=== PATIENT | male | born 1970 | race Caucasian/White ===

== ENCOUNTER 2016-11-19 12:53 | Inpatient (IN) | payer OTHER ==
[~2016-11-19] VITALS: Ht 170.2 cm; Wt 78.9 kg
[~2016-11-19 12:53] MED LIST: AMOXIL500 MG PO; ASPIRIN325 MG PO; CLARITHROMYCIN500 M1 PO; COLACE100 MG PO; LAC PO; METOPROLOL TART25 M1 PO; MOTRIN800 MG PO; NORCO1 TA2 PO; OMEPRAZOLE DR20 M1 PO; PRILOSEC20 MG PO; STOOL SOFTENER100 MG PO; VALIUM5 MG PO; ZES5 PO
--- NOTE | 2016-11-19 16:15 | NUR ---
DR WISE AT BEDSIDE FOR MSE
--- NOTE | 2016-11-19 16:42 | NUR ---
METER MAINTENANCE PERSON AT BEDSIDE.
[2016-11-19 17:11] LABS: BASOPHIL % 1.3 % (0-2); PLATELET COUNT 303 x10^3mcL (130-400)
[2016-11-19 17:19] LABS: CALCIUM 8.4 mg/dL (8.5-10.1); CHLORIDE SERUM 103 mmol/L (98-107); CREATININE SERUM 0.8 mg/dL (0.7-1.3); GFR1 > 60 mL/min; GLUCOSE SERUM 95 mg/dL (74-106); POTASSIUM SERUM 3.8 mmol/L (3.5-5.1); SODIUM SERUM 138 mmol/L (136-145)
--- NOTE | 2016-11-19 17:22 | NUR ---
NS INFUSING AT 100 ML/HR, PT MEDICATED WITH ZOFRAN, AND MORPHINE 1 MG SLOW IVP DILUTED. UPON GIVING MORPHINE PT REQUESTED THAT I STOP BECAUSE HE LIKED THE WAY IT WAS FEELING AND HE DOESNT WANT TO FEEL IT ANYMORE. PT REPORTS PAIN IS GONE AT THIS TIME. DR WISE INFORMED. ROCEPHIN 1 GRAM IV INFUSING PER ORDERS VIA IV PUMP AT 100 ML/HR. PT DENIES ALLERGIES TO MEDICATIONS. PT EDUCATED ON MEDICATIONS PRIOR TO ADMINISTRATION. PT RESTING WITH CALL LIGHT IN REACH.
[2016-11-19 17:23] LABS: ALBUMIN 3.4 g/dL (3.4-5.0); ALKALINE PHOSPHATASE 141 U/L (46-116); ALT/SGPT 36 U/L (16-63); AST/SGOT 25 U/L (15-37); BILIRUBIN TOTAL 0.4 mg/dL (0.20-1.00); URIC ACID 4.9 mg/dL (3.5-7.2)
--- NOTE | 2016-11-19 17:24 | NUR ---
PT UNABLE TO URINATE AT THIS TIME.
[2016-11-19 17:28] LABS: RED CELL DISTRIBUTION WIDTH 14.9 % (11.5-14.5)
--- NOTE | 2016-11-19 17:41 | NUR ---
ROCEPHIN COMPLETE WITH NO ADVERSE REACTIONS NOTED.
--- NOTE | 2016-11-19 18:37 | NUR ---
CALLED TO GIVE REPORT, JAY STATED SHE WILL CALL ME BACK.
--- NOTE | 2016-11-19 18:47 | NUR ---
CALLED ER BACK FOR REPORT , ED RN UNABLE AT THIS TIME.
--- NOTE | 2016-11-19 18:54 | NUR ---
REPORT GIVEN TO SERA ARRIAZA TO ASSUME CARE OF PT.
--- NOTE | 2016-11-19 19:22 | NUR ---
PT MEDICATED WITH TORADOL SLOW IVP PER DR WISE ORDERS, PT DENIES ALLERGIES TO MEDICATIONS, PT EDUCATED ON MEDICATION PRIOR TO ADMINISTRATION.
[2016-11-19 19:26] LABS: microscopic required? NO
[2016-11-19 19:39] LABS: UA SPECIFIC GRAVITY <=1.005 (1.005-1.035); urine erythrocyte NEGATIVE (NEGATIVE)
[2016-11-19 19:43] LABS: CHOLESTEROL/HDL RATIO 3.3; MAGNESIUM 2.1 mg/dL (1.8-2.4)
[2016-11-19 19:48] LABS: AMPHETAMINE QUAL UR NONE DETECTED (NEG <=1000)
[2016-11-19 19:48] LABS: T3 TOTAL 1.09 ng/mL
[2016-11-19 19:49] VITALS: BP 116/71
--- NOTE | 2016-11-19 19:50 | NUR ---
RECEIVED PT FROM TITI RN. PT A/OX4. DENIES CHEST PAIN/PRESSURE. DENIES SOB ON RA. IV PATENT TO LAC. C/O PAIN TO R FOOT 08/22. REDNESS AND SWELLING WITH CLOSED BLACK ABRAISION TO SOLE OF FOOT. PAIN RADIATES UP R LOWER EXTREMITY AND THROBBING. WILL MEDICATE FOR PAIN PRN PER EMAR. ORIENTED TO ROOM AND SURROUNDINGS. CALL LIGHT WITHIN REACH, BED IN LOW POSITION. WILL CONTINUE TO MONITOR.
[2016-11-19 19:52] LABS: FREE T4 0.89 ng/dL (0.76-1.46); FREE THYROXINE INDEX 2.3 ug/dL (1.4-4.5); T4(THYROXINE) 6.5 ug/dL (4.7-13.3)
--- NOTE | 2016-11-19 19:54 | NUR ---
RECEIVED PT FROM ED VIA VALENTIN. ORIENTED PT TO ROOM AND SURROUNDINGS. IV NOTED TO LAC PATENT AND INTACT .TELE 36 PLACED ON PT READING NSR. INSTRUCTED PT ON THE USE OF CALL LIGHT FOR ASSISTANCE. ENDORSED PT TO PRIMARY NURSE AMISHA
[2016-11-19 20:47] VITALS: BP 116/71
--- NOTE | 2016-11-19 23:29 | NUR ---
PT C/O 09/22 PAIN TO RLE. MORPHINE PULLED AND SCANNED, PT REFUSED DUE TO HX OF DRUG ADDICTION. REQUESTING TORADOL. WILL NOTIFY DR FOR ORDER. MORPHINE 2MG WASTED AND VERIFIED BY LEDA ARRIAZA.
--- NOTE | 2016-11-20 01:01 | NUR ---
PT RESTING AT THIS TIME IN NO ACUTED DISTRESS. RR EVEN AND UNLABORED. IV PATENT. CALL LIGHT WITHIN REACH, BED IN LOW POSITION. WILL CONTINUE TO MONITOR.
[2016-11-20 05:17] VITALS: BP 118/67
--- NOTE | 2016-11-20 07:30 | NUR ---
PATIENT IS IN BED, APPEARS TO BE RESTING WELL. AROUSED EASILY TO NAME. IVF INFUSING WELL, SITE PATENT LT A/C. RESP EVEN AND UNLABORED, LUNGS CLEAR ON ROOM AIR. DENIES ANY SOB OR COUGH. TELE 36 NSR. ABD SOFT BOWEL SOUNDS ACTIVE, VOIDING WELL. RT FOOT NOTED WITH SMALL BLACK DOT ON THE SOLE OF THE FOOT, BRETT. NO REDNESS NOTED, BUT TOP OF RT FOOT DOES APPEAR TO BE SWOLLEN. AMBULATES AD ROBERT TO THE BATHROOM. WILL CONTINUE TO MONITOR.
--- NOTE | 2016-11-20 08:30 | NUR ---
DR ALSTON AND MEDICAL TEAM INTO SEE PATIENT AND DISCUSS PLAN OF CARE.
[2016-11-20 09:18] VITALS: BP 119/76
--- NOTE | 2016-11-20 09:30 | NUR ---
PATIENT'S PLAN OF CARE WAS DISCUSSED AND REVIEWED WITH COMPRESSOR OPERATOR:JENY
--- NOTE | 2016-11-20 09:30 | NUR ---
I HAVE REVIEWED THE DATA COLLECTION BY GASTON (NAME):JENY ENTERED ON (DATE/TIME):11/20/16 5468 I CONCUR WITH THE DATA AND ANY EXCEPTIONS OR COMMENTS ARE LISTED BELOW:
[2016-11-20 12:41] VITALS: BP 135/87
[2016-11-20 14:52] LABS: BASOPHIL % 0.3 % (0-2); PLATELET COUNT 262 x10^3mcL (130-400); RED CELL DISTRIBUTION WIDTH 14.3 % (11.5-14.5)
[2016-11-20 14:58] LABS: CALCIUM 8.2 mg/dL (8.5-10.1); CARBON DIOXIDE 27.5 mmol/L (21-32); CHLORIDE SERUM 109 mmol/L (98-107); CREATININE SERUM 0.9 mg/dL (0.7-1.3); GFR1 > 60 mL/min; GLUCOSE SERUM 111 mg/dL (74-106); POTASSIUM SERUM 4.1 mmol/L (3.5-5.1); SODIUM SERUM 141 mmol/L (136-145)
[2016-11-20 16:44] VITALS: BP 125/84
--- NOTE | 2016-11-20 17:36 | NUR ---
PATIENT SITTING UP IN BED, HAS BEEN WATCHING TV AND TALKING ON PHONE. C/O RT FOOT PAIN 11/22. WILL BE MEDICATED WITH TORADOL BY ANASTASIA ARRIAZA ORDERED. NO CHANGE IN CONDITION NOTED. WILL CONTINUE TO MONITOR.
--- NOTE | 2016-11-20 20:00 | NUR ---
RECEIVED PT IN BED. ALERT AND ORIENTED. DENIES HEADACHE/DIZZINESS. RESP. EVEN AND UNLABORED. LUNGS SOUNDS CLEAR. ON ROOM AIR, NO DISTRESS NOTED. AFEBRILE AND VITAL SIGNS STABLE. SR ON THE MONITOR. DENIES CHEST PAIN OR ANY DISCOMFORT. IVF, NS AT 100ML/HR, INTACT AND INFUSING VIA LAC, SITE CLEAR. RT FOOT SWOLLEN AND SLIGHTLY RED, ELEVATED ON PILLOW. VOIDING FREELY. ASSISTED WITH HS CARE. CALL LIGHT WITHIN REACH. WILL CONTINUE TO MONITOR.
[2016-11-20 21:35] VITALS: BP 104/62
--- NOTE | 2016-11-21 00:39 | NUR ---
COMPLAINED OF RT FOOT PAIN, 5/10, MEDICATED WITH TORADOL IV ORDERED. WILL CONTINUE TO MONITOR.
--- NOTE | 2016-11-21 01:29 | NUR ---
SLEEPING AT THIS TIME, APPEARS COMFORTABLE. NO DISTRESS NOTED. WILL CONTINUE TO MONITOR.
[2016-11-21 06:32] VITALS: BP 108/62
[2016-11-21 06:36] LABS: BASOPHIL % 0.4 % (0-2); PLATELET COUNT 246 x10^3mcL (130-400)
--- NOTE | 2016-11-21 06:40 | NUR ---
AFEBRILE AND VITAL SIGNS STABLE. DENIES CHEST PAIN OR ANY DISCOMFORT AT THIS TIME. SLEPT WELL. RT FOOT ELEVATED ON PILLOW. DUE MEDS GIVEN ORDERED, MARY. WELL. IVF INTACT AND INFUSING WELL, SITE CLEAR. VOIDING FREELY. RESP. EVEN AND UNLABORED.NO DISTRESS NOTED. WILL ENDORSE TO INCOMING NURSE.
[2016-11-21 07:01] LABS: CALCIUM 7.9 mg/dL (8.5-10.1); CARBON DIOXIDE 24.5 mmol/L (21-32); CHLORIDE SERUM 108 mmol/L (98-107); CREATININE SERUM 0.9 mg/dL (0.7-1.3); GFR1 > 60 mL/min; GLUCOSE SERUM 87 mg/dL (74-106); MAGNESIUM 2.1 mg/dL (1.8-2.4); PHOSPHOROUS 3.6 mg/dL (2.5-4.9); POTASSIUM SERUM 3.9 mmol/L (3.5-5.1); SODIUM SERUM 142 mmol/L (136-145)
[2016-11-21 07:04] LABS: RED CELL DISTRIBUTION WIDTH 14.8 % (11.5-14.5)
--- NOTE | 2016-11-21 07:57 | NUR ---
AAO TIMES 4. TELE # 36 SR. LUNGS CTA. NO SOB. O2 SAT ON RA 99%. BS'S ACTIVE TIMES 4. [place] STRONG. RIGHT FOREFOOT WITH TINY DRIED, BARELY RED WOUND, NO EDEMA. PT STATES IT HURTS TO WALK ON THE WOUND. WOUND POACHER WRINGER OPERATOR WITH SOCKS ON, WILL DO MONDAY PHOTO AND APPLY DRESSING OR BANDAID TO WOUND. PERIPHERAL PULSES PALPABLE, NO EDEMA, NO REDNESS RLE. COOPERATIVE.
--- NOTE | 2016-11-21 08:38 | NUR ---
DR QUEVEDO AND THE MEDICINE TEAM DID ROUNDS WITH PT AT THIS TIME. THE PLAN FOR TODAY IS TO HAVE DEBRIDEMENT OF HIS RIGHT FOOT WITH PODIATRY AND WILL PROBABLY BE DC'D TOMORROW.
[2016-11-21 09:53] VITALS: BP 123/71
[2016-11-21 12:50] VITALS: BP 105/66
[2016-11-21 17:14] VITALS: BP 121/74
--- NOTE | 2016-11-21 18:06 | NUR ---
AAO TIMES 4. NO TELE. GAVE TORADOL 30 MG IVP SLOW OVER 1 MINUTE AT 1743 FOR C/O RIGHT FOOT PAIN 09/22. PLEASANT, COOPERATIVE. IV SITE LAC PATENT, CDI.
--- NOTE | 2016-11-21 19:10 | NUR ---
REC'D PT FROM DAY NURSE. PT AAOX4, SPEECH CLEAR, FOLLOWS COMMANDS. RESTING IN BED ON PHONE. NO SIGNS OF DISTRESS NOTED. BREATHING EVEN/UNLABORED. TELE 54 . DENIES CP, DIZZINESS, OR PALPITATIONS. NO EDEMA NOTED. DENIES ABD PAIN, TENDERNESS, OR N/V. VOIDING FREELY. AMBULATORY. PT IS S/P DEBRIDEMENT TO PLANTAR R FOOT. KERLIX WITH CASA BANDAGE CDI. REPORTS SOME PAIN. /, TOLERABLE AT THIS TIME. NOTED DRY SCALY SKIN TO DIVINA FEET, DENIES ITCHINESS. RLE ELEVATED WITH PILLOW. POST OP SHOE AT BEDSIDE. IV TO LAC PATENT AND INFUSING. CALL LIGHT WITHIN REACH, BED AT LOWEST POSITION. WILL CONTINUE TO MONITOR.
--- NOTE | 2016-11-21 19:10 | NUR ---
REC'D PT FROM DAY NURSE. PT AAOX4, SPEECH CLEAR, FOLLOWS COMMANDS. RESTING IN BED ON PHONE. NO SIGNS OF DISTRESS NOTED. BREATHING EVEN/UNLABORED. MED SURG PT, NO TELE. DENIES CP, DIZZINESS, OR PALPITATIONS. NO EDEMA NOTED. DENIES ABD PAIN, TENDERNESS, OR N/V. VOIDING FREELY. AMBULATORY. PT IS S/P DEBRIDEMENT TO PLANTAR R FOOT. KERLIX WITH CASA BANDAGE CDI. REPORTS SOME PAIN. 06/22, TOLERABLE AT THIS TIME. NOTED RASH TO DIVINA FEET, DENIES ITCHINESS. RLE ELEVATED WITH PILLOW. IV TO LAC PATENT AND INFUSING. CALL LIGHT WITHIN REACH, BED AT LOWEST POSITION. WILL CONTINUE TO MONITOR.
--- NOTE | 2016-11-21 19:10 | NUR ---
REC'D PT FROM DAY NURSE. PT AAOX4, SPEECH CLEAR, FOLLOWS COMMANDS. RESTING IN BED ON PHONE. NO SIGNS OF DISTRESS NOTED. BREATHING EVEN/UNLABORED. MED SURG PT, NO TELE. DENIES CP, DIZZINESS, OR PALPITATIONS. NO EDEMA NOTED. DENIES ABD PAIN, TENDERNESS, OR N/V. VOIDING FREELY. AMBULATORY. PT IS S/P DEBRIDEMENT TO PLANTAR R FOOT. KERLIX WITH CASA BANDAGE CDI. REPORTS SOME PAIN. 06/22, TOLERABLE AT THIS TIME. NOTED DRY SCALY SKIN TO DIVINA FEET, DENIES ITCHINESS. RLE ELEVATED WITH PILLOW. POST OP SHOE AT BEDSIDE. IV TO LAC PATENT AND INFUSING. CALL LIGHT WITHIN REACH, BED AT LOWEST POSITION. WILL CONTINUE TO MONITOR.
[2016-11-21 20:41] VITALS: BP 98/68
--- NOTE | 2016-11-22 01:44 | NUR ---
PT RESTING IN BED WITH EYES CLOSED. LAYING ON R SIDE. NO SIGNS OF DISTRESS NOTED. BREATHING EVEN/UNLABORED ON RA. CALL LIGHT WITHIN REACH, BED AT LOWEST POSITION. WILL CONTINUE TO MONITOR.
[2016-11-22 05:12] VITALS: BP 116/70
--- NOTE | 2016-11-22 05:24 | NUR ---
PT RESTING IN BED WATCHING TV. NO SIGNS OF DISTRESS NOTED. BREATHING EVEN/UNLABORED ON RA. C/O SHARP PAIN TO R FOOT 09/22. PAIN EXACERBATED WITH AMBULATION. TORADOL GIVEN PER ORDER. DRESSING TO R FOOT CDI. RLE ELEVATED WITH PILLOW. NO OTHER COMPLAINTS AT THIS TIME. NO SIGNIFICANT CHANGES DURING SHIFT. CALL LIGHT WITHIN REACH, BED AT LOWEST POSITION. WILL ENDORSE TO DAY NURSE.
--- NOTE | 2016-11-22 08:00 | NUR ---
AAO TIMES 4. NO TELE. LUNGS CTA. NO SOB. O2 SAT ON RA 98%. BS'S ACTIVE TIMES 4. PODIATRY DID ANOTHER DEBRIDMENT ON HIS RIGHT FOOT, I APLIED BANDAID, PHOTOS WILL FOLLOW LATER. PT'S IV SITE INFILTRATED TO LAC, I NOTIFIED DR IRAHETA, PT WILL BE DC'D HOME TODAY. PERIPHERAL PULSES PALPABLE. NO EDEMA. BAND AID TO RIGHT PLANTAR FOREFOOT CDI. PT HAS SURGICAL SHOE TO RIGHT FOOT.
[2016-11-22] MEDS ORDERED: CLEOCIN HCL300 MG PO (09:13)
[2016-11-22] MEDS ORDERED: LEVOFLOXACIN500 M1 PO (09:14)
[2016-11-22] MEDS ORDERED: LOTRIMIN AF1% TOP (09:15)
[2016-11-22] MEDS ORDERED: IBUPROFEN400 MG PO (09:16)
[2016-11-22 09:21] VITALS: BP 126/79
[2016-11-22] MEDS ORDERED: LAC PO (10:33)
[2016-11-22 11:54] VITALS: BP 119/74; BP 143/67
[2016-11-22 13:44] VITALS: BP 119/74
--- NOTE | 2016-11-22 14:16 | NUR ---
DC'D SL ANGIO INTACT. GAVE PT DISCHARGE INSTRUCTIONS AND PRESCRIPTION. PT VERBALIZED "I UNDERSTAND" TO ALL INSTRUCTIONS. PHYSICAL THERAPY GAVE PT INSTRUCTIONS ON HOW TO WALK WITH CRUTCHES, CRUTCHES ARE IN PT'S ROOM. PT VERBALIZED "I UNDERSTAND TO ALL INSTRUCTIONS. PHOTO WAS TAKEN EARLIER OF WOUND POST PODIATRY CARE THIS AM.
--- NOTE | 2016-11-23 07:13 | NUR ---
ECHOCARDIOGRAM NOT DONE PATIENT DISCHARGED
== END 2016-11-22 15:15 | disposition home or self-care (01) | DRG 603 ==
LOC: ED 12:53 → DU 18:03 → MU 18:03 → DU 19:35 → MU 11-22 08:30
PROVIDERS: Emergency Medicine; ADMIT Student in an Organized Health Care Education/Training Program
PROC: 0HDMXZZ Extraction of Right Foot Skin, External Approach (ICD-10-PCS; principal; 2016-11-21)
DX: L03.115 Cellulitis of right lower limb (principal); E72.4 Disorders of ornithine metabolism; B37.2 Candidiasis of skin and nail; S91.331A Puncture wound without foreign body, right foot, initial encounter; E78.5 Hyperlipidemia, unspecified; F17.210 Nicotine dependence, cigarettes, uncomplicated; E83.51 Hypocalcemia; I10 Essential (primary) hypertension; W45.0XXA Nail entering through skin, initial encounter; Y93.89 Activity, other specified; Y92.89 Other specified places as the place of occurrence of the external cause; Z90.49 Acquired absence of other specified parts of digestive tract; Z82.49 Family history of ischemic heart disease and other diseases of the circulatory system; Z83.3 Family history of diabetes mellitus
CPT/HCPCS: 83880; 84439; 90715; J0696; J1885; J2001; J2270; J2405; J2543; J3490; J7030; Q0092